=== PATIENT | female | born 1960 | race Caucasian/White ===

== ENCOUNTER 2020-08-26 12:55 | Emergency (ER) | payer BC, OTHER ==
[2020-08-26 13:32] VITALS: BMI 23.9
[2020-08-26] MEDS ORDERED: MECLIZINE HCL 25 MG TABLET (FP) PO ONE (13:59)
[2020-08-26] MEDS ORDERED: MECLIZINE HCL 25 MG TABLET (FP) ONE (14:10)
[2020-08-26 15:12] VITALS: BP 134/74; PULSE 70; TEMP 97.9
== END 2020-08-26 16:36 | disposition home or self-care (01) ==
LOC: JER 12:55
DX: R42 Dizziness and giddiness (principal); I10 Essential (primary) hypertension
CPT/HCPCS: 93005; 93010; 99283-25

== ENCOUNTER 2020-12-04 07:20 | Emergency (ER) | payer BC, OTHER ==
[2020-12-04 07:52] VITALS: BP 125/79; PULSE 77; TEMP 98.7; BMI 25.0
== END 2020-12-04 07:50 | disposition home or self-care (01) ==
LOC: JER 07:20
DX: L03.011 Cellulitis of right finger (principal)
CPT/HCPCS: 99282-25